=== PATIENT | female | born 1950 | race Caucasian/White ===

== ENCOUNTER 2021-10-11 14:10 | Emergency (ER) | payer MEDICAID, MEDICARE ==
[~2021-10-11] VITALS: Ht 157.5 cm; Wt 109.0 kg
[~2021-10-11 14:10] MED LIST: AMLO5TAB88 MT; AMLO5TAB88 PO; ASPI-1406 MT; ATOR10TA69 MT; CARV6.2548 MT; CLOP-31 MT; FOLI1TAB63 MT; GABA-532 MT; HYDR-4134 MT; METH25TA5 MT; METO2.5T2 MT; MIRT7.5T11 MT; MONT10TA21 MT; PANT40TA51 MT; SACU1TAB MT; SERT-422 MT; SEVE800T8 MT; SITA50TA3 MT
[2021-10-11 14:54] LABS: HEMATOCRIT. 24.4 % (36.0-48.0); HEMOGLOBIN. 8.3 g/dL (12.0-16.0); MEAN CORPUSCULAR HEMOGLOBIN 32.5 pg (28.0-32.0); MEAN PLATELET VOLUME 8.4 fl (7.4-10.4); PLATELET 233 x1000/uL (130-400); RED BLOOD CELL COUNT 2.57 mill/uL (4.2-5.4)
[2021-10-11 14:57] LABS: CHLORIDE 94 mEq/L (98-107)
[2021-10-11] MEDS ORDERED: SODIUM CHLORIDE 0.9% 500 ML IV ONE (15:00)
[2021-10-11 15:22] LABS: PLATELET ESTIMATE NORMAL
[2021-10-11 20:00] VITALS: BP 141/61
== END 2021-10-11 20:42 | disposition home or self-care (01) ==
LOC: ER 14:10
DX: R55 Syncope and collapse (principal); I35.0 Nonrheumatic aortic (valve) stenosis; I12.0 Hypertensive chronic kidney disease with stage 5 chronic kidney disease or end stage renal disease; E11.22 Type 2 diabetes mellitus with diabetic chronic kidney disease; N18.6 End stage renal disease; Z98.890 Other specified postprocedural states; Z99.2 Dependence on renal dialysis; Z79.82 Long term (current) use of aspirin; Z88.8 Allergy status to other drugs, medicaments and biological substances; Z88.0 Allergy status to penicillin
CPT/HCPCS: 36415; 71045; 80053; 84484; 85025; 93005; 99285